=== PATIENT | male | born 1955 | race Caucasian/White ===

== ENCOUNTER 2019-09-01 09:38 | Inpatient (IN) ==
[2019-09-01] MEDS ORDERED: ONDANSETRON 4 MG/2 ML VIAL IV STA (10:07)
[2019-09-01] MEDS ORDERED: ALUM/MAG/SIMETH/LIDO VISC 1:1 30 ML BOTTLE PO STA (10:07)
[2019-09-01] MEDS ORDERED: SODIUM CHLORIDE 0.9% 1,000 ML IV STA (10:07)
[2019-09-01] MEDS ORDERED: HYDROmorphone 2 MG/1 ML VIAL IV STA ×2 (10:07→12:11)
[2019-09-01 10:27] LABS: Basophils % 0.4 % (0.0-0.8); Eosinophils % 0.1 % (0.00-10.9); Hematocrit 42.3 VOL% (42.0-52.0); Hemoglobin 14.6 GM/DL (14.0-18.0); Immature Granulocytes % 0.5 %; Immature Granulocytes Absolute 0.05 #; Lymphocytes # 1.3 10*3/uL (1.4-4.0); Lymphocytes % 12.9 % (21.2-54.2); Mean Corpuscular HGB Conc 34.5 GM/DL (32-36); Mean Corpuscular Volume 88.3 FL (87-102); Monocytes % 7.6 % (1.7-12.7); Neutrophils % 78.5 % (38.7-73.9); Platelet Count 182 T/CUMM (130-400); Red Blood Count 4.79 MC/CUMM (3.8-5.5); Red Cell Distribution Width 16.9 % (9.3-17.3); White Blood Count 10.3 T/CUMM (4-12)
[2019-09-01 10:49] LABS: Alanine Aminotransferase 14 U/L (16-61); Albumin 3.5 G/DL (3.4-5.0); Alkaline Phosphatase 118 U/L (45-117); Aspartate Amino Transferase 20 U/L (0-37); Blood Urea Nitrogen 14 MG/DL (7-18); Calcium 8.1 MG/DL (8.5-10.1); Estimated Glom Filtration Rate 89 ML/MIN; Glucose 99 MG/DL (74-106); Osmolality,Calculated 273.8 MOS/KG (273-304); Total Protein 6.9 G/DL (6.4-8.3)
[2019-09-01] MEDS ORDERED: ONDANSETRON 4 MG/2 ML VIAL IV PRN (11:33)
[2019-09-01 12:23] LABS: Apearance,Urine CLEAR (Clear); Bilirubin,Urine Negative (Negative); Blood, Urine Negative (Negative); Glucose,Urine (UA) Negative (Negative); Ketones,Urine Negative (Negative); Nitrite,Urine Negative (Negative); Protein,Urine Negative; Urine Color Straw (Yellow); Urine Specific Gravity 1.029 (1.001-1.035); Urine Urobilinogen < 2.0 EU/DL (0.2-1.0)
[2019-09-01] MEDS: SODIUM CHLORIDE 0.9% 1,000 ML IV SCH ×2 (12:37→21:10)
[2019-09-01] MEDS: ENOXAPARIN 40 MG/0.4 ML SYRINGE SUBCUT SCH (15:23)
[2019-09-01] MEDS: HYDROmorphone 2 MG/1 ML VIAL IV PRN ×2 (15:25→20:04)
[2019-09-01] MEDS: DOCUSATE SODIUM 100 MG CAPSULE PO SCH (21:18)
[2019-09-01] MEDS: ACETAMINOPHEN 325 MG TABLET PO PRN (21:22)
[2019-09-01] MEDS: CLORAZEPATE 3.75 MG TABLET PO PRN (21:22)
[2019-09-02] MEDS: HYDROmorphone 2 MG/1 ML VIAL IV PRN ×6 (00:07→21:08)
[2019-09-02] MEDS: ZALEPLON 5 MG CAPSULE PO PRN ×2 (00:07→21:19)
[2019-09-02] MEDS: ACETAMINOPHEN 325 MG TABLET PO PRN ×3 (04:13→18:26)
[2019-09-02] MEDS: SODIUM CHLORIDE 0.9% 1,000 ML IV SCH ×3 (05:05→23:03)
[2019-09-02 07:19] LABS: Albumin 2.7 G/DL (3.4-5.0); Bilirubin,Total 1.5 MG/DL (0.2-1.0); Calcium 7.8 MG/DL (8.5-10.1); Osmolality,Calculated 269.1 MOS/KG (273-304); Total Protein 5.8 G/DL (6.4-8.3)
[2019-09-02] MEDS: DOCUSATE SODIUM 100 MG CAPSULE PO SCH ×2 (09:00→21:08)
[2019-09-02] MEDS: PANTOPRAZOLE 40 MG TABLET PO SCH (09:00)
[2019-09-02] MEDS: THIAMINE 200 MG/2 ML VIAL IV SCH (11:15)
[2019-09-02] MEDS: MULTIVITAMIN INJ 10 ML in SODIUM CHLORIDE 0.9% 1,000 ML IV SCH (12:14)
[2019-09-02] MEDS: ENOXAPARIN 40 MG/0.4 ML SYRINGE SUBCUT SCH (14:40)
[2019-09-02] MEDS: CLORAZEPATE 3.75 MG TABLET PO PRN (18:26)
[2019-09-03] MEDS: ACETAMINOPHEN 325 MG TABLET PO PRN ×2 (00:26→16:25)
[2019-09-03] MEDS: HYDROmorphone 2 MG/1 ML VIAL IV PRN ×5 (01:05→21:06)
[2019-09-03] MEDS: SODIUM CHLORIDE 0.9% 1,000 ML IV SCH ×4 (08:18→22:13)
[2019-09-03] MEDS: LISINOPRIL/HCTZ 20-25 MG TABLET PO SCH (09:24)
[2019-09-03] MEDS: PANTOPRAZOLE 40 MG TABLET PO SCH (09:24)
[2019-09-03] MEDS: DOCUSATE SODIUM 100 MG CAPSULE PO SCH ×2 (09:24→21:05)
[2019-09-03] MEDS: OMEPRAZOLE ODT 20 MG TABLET PO SCH (09:24)
[2019-09-03] MEDS: THIAMINE 200 MG/2 ML VIAL IV SCH (09:24)
[2019-09-03] MEDS: MULTIVITAMIN INJ 10 ML in SODIUM CHLORIDE 0.9% 1,000 ML IV SCH (11:48)
[2019-09-03] MEDS: ENOXAPARIN 40 MG/0.4 ML SYRINGE SUBCUT SCH (13:35)
[2019-09-03] MEDS: CLORAZEPATE 3.75 MG TABLET PO PRN (16:25)
[2019-09-04] MEDS: ACETAMINOPHEN 325 MG TABLET PO PRN ×2 (00:05→09:46)
[2019-09-04] MEDS: HYDROmorphone 2 MG/1 ML VIAL IV PRN ×3 (00:14→08:03)
[2019-09-04] MEDS: SODIUM CHLORIDE 0.9% 1,000 ML IV SCH (06:10)
[2019-09-04] MEDS ORDERED: [UNRECOGNIZED DRUG - OTHER] IV SCH (06:30)
[2019-09-04] MEDS ORDERED: MULTIVITAMIN IV SCH (06:30)
[2019-09-04] MEDS ORDERED: SODIUM CHLORIDE IV SCH (06:30)
[2019-09-04 08:10] VITALS: BP 124/89
[2019-09-04 08:15] LABS: Basophils % 0.5 % (0.0-0.8); Eosinophils # 0.2 10*3/uL (0.0-0.87); Hematocrit 37.3 VOL% (42.0-52.0); Hemoglobin 12.7 GM/DL (14.0-18.0); Immature Granulocytes % 0.7 %; Immature Granulocytes Absolute 0.06 #; Lymphocytes # 1.1 10*3/uL (1.4-4.0); Lymphocytes % 13.7 % (21.2-54.2); Mean Corpuscular Volume 91.4 FL (87-102); Mean Platelet Volume 9.6 FL (9.6-12.0); Monocytes % 9.4 % (1.7-12.7); Neutrophils % 73.7 % (38.7-73.9); Platelet Count 152 T/CUMM (130-400); Red Blood Count 4.08 MC/CUMM (3.8-5.5); Red Cell Distribution Width 17.2 % (9.3-17.3); White Blood Count 8.1 T/CUMM (4-12)
[2019-09-04] MEDS: LISINOPRIL/HCTZ 20-25 MG TABLET PO SCH (09:46)
[2019-09-04] MEDS: PANTOPRAZOLE 40 MG TABLET PO SCH (09:47)
[2019-09-04] MEDS: THIAMINE 200 MG/2 ML VIAL IV SCH (09:47)
[2019-09-04] MEDS: DOCUSATE SODIUM 100 MG CAPSULE PO SCH (09:47)
[2019-09-04] MEDS: OMEPRAZOLE ODT 20 MG TABLET PO SCH (09:47)
[2019-09-04 10:02] LABS: Sedimentation Rate-Westergren 59 MM/HR (0-20)
== END 2019-09-04 11:33 | disposition home or self-care (01) | DRG 439 ==
LOC: N.ED 09:38 → SUPCPDRO 11:46 → N.EDINP 11:46 → N.TELEN 14:24
PROVIDERS: ADMIT Family Medicine; ATTEND Family Medicine

== ENCOUNTER 2019-11-26 03:38 | Inpatient (IN) ==
[2019-11-26 04:09] LABS: Basophils # 0.1 10*3/uL (0.0-0.2); Basophils % 0.3 % (0.0-0.8); Eosinophils % 0.1 % (0.00-10.9); Immature Granulocytes % 0.8 %; Immature Granulocytes Absolute 0.12 #; Lymphocytes # 1.7 10*3/uL (1.4-4.0); Lymphocytes % 10.6 % (21.2-54.2); Mean Corpuscular HGB Conc 37.8 GM/DL (32-36); Mean Platelet Volume 10.8 FL (9.6-12.0); Monocytes % 7.9 % (1.7-12.7); Neutrophils % 80.3 % (38.7-73.9); Platelet Count 144 T/CUMM (130-400); Red Blood Count 5.07 MC/CUMM (3.8-5.5); Red Cell Distribution Width 12.1 % (9.3-17.3); White Blood Count 15.9 T/CUMM (4-12)
[2019-11-26] MEDS ORDERED: ONDANSETRON 4 MG/2 ML VIAL IV ONE (04:15)
[2019-11-26] MEDS ORDERED: MORPHINE 4 MG/1 ML VIAL IV STA ×2 (04:15→05:20)
[2019-11-26 04:31] LABS: Hematocrit 44.4 VOL% (42.0-52.0)
[2019-11-26 04:32] LABS: Hemoglobin 16.5 GM/DL (14.0-18.0)
[2019-11-26 04:52] LABS: Albumin 4.4 G/DL (3.4-5.0); Bilirubin,Total 1.7 MG/DL (0.2-1.0); Calcium 8.8 MG/DL (8.5-10.1); Osmolality,Calculated 268.5 MOS/KG (273-304); Total Protein 7.6 G/DL (6.4-8.3)
[2019-11-26] MEDS ORDERED: PANTOPRAZOLE 40 MG VIAL IV STA (05:20)
[2019-11-26] MEDS ORDERED: THIAMINE INJ 100 MG, FOLIC ACID INJ 1 MG, MAGNESIUM SULF INJ 2 GM, MULTIVITAMIN INJ 10 ... IV ONE (05:20)
[2019-11-26] MEDS: MORPHINE 4 MG/1 ML VIAL IV PRN ×4 (09:10→21:31)
[2019-11-26] MEDS: POTASSIUM CHLORIDE 20 MEQ TABLET PO PRN ×4 (09:42→17:42)
[2019-11-26] MEDS: DOCUSATE SODIUM 100 MG CAPSULE PO SCH ×2 (09:42→21:34)
[2019-11-26] MEDS: PANTOPRAZOLE 40 MG VIAL IV SCH (09:42)
[2019-11-26] MEDS: ACETAMINOPHEN 325 MG TABLET PO PRN ×2 (11:50→17:42)
[2019-11-26] MEDS: ONDANSETRON 4 MG/2 ML VIAL IV PRN (18:17)
[2019-11-26] MEDS: TAMSULOSIN 0.4 MG CAPSULE PO SCH (21:32)
[2019-11-27] MEDS: MORPHINE 4 MG/1 ML VIAL IV PRN ×6 (01:14→23:23)
[2019-11-27] MEDS: ACETAMINOPHEN 325 MG TABLET PO PRN ×2 (01:18→18:06)
[2019-11-27] MEDS: ONDANSETRON 4 MG/2 ML VIAL IV PRN ×2 (01:26→15:00)
[2019-11-27] MEDS ORDERED: SODIUM CHLORIDE 0.9% 1,000 ML IV STA (07:54)
[2019-11-27 08:24] LABS: Albumin 3.6 G/DL (3.4-5.0); Bilirubin,Direct 0.27 MG/DL (0.0-0.20); Bilirubin,Indirect 0.9 MG/DL (0.0-1.0); Bilirubin,Total 1.2 MG/DL (0.2-1.0); Total Protein 7.2 G/DL (6.4-8.3)
[2019-11-27 08:30] LABS: Basophils % 0.3 % (0.0-0.8); Eosinophils # 0.3 10*3/uL (0.0-0.87); Eosinophils % 2.6 % (0.00-10.9); Hematocrit 40.7 VOL% (42.0-52.0); Immature Granulocytes % 0.4 %; Immature Granulocytes Absolute 0.05 #; Lymphocytes # 1.1 10*3/uL (1.4-4.0); Lymphocytes % 9.9 % (21.2-54.2); Mean Corpuscular HGB Conc 34.9 GM/DL (32-36); Mean Corpuscular Volume 91.5 FL (87-102); Mean Platelet Volume 11.3 FL (9.6-12.0); Monocytes % 9.2 % (1.7-12.7); Neutrophils % 77.6 % (38.7-73.9); Red Blood Count 4.45 MC/CUMM (3.8-5.5); Red Cell Distribution Width 12.8 % (9.3-17.3); White Blood Count 11.5 T/CUMM (4-12)
[2019-11-27 08:33] LABS: Hemoglobin 14.2 GM/DL (14.0-18.0); Platelet Count 111 T/CUMM (130-400)
[2019-11-27] MEDS: DOCUSATE SODIUM 100 MG CAPSULE PO SCH ×2 (09:09→20:05)
[2019-11-27] MEDS: PANTOPRAZOLE 40 MG VIAL IV SCH (09:09)
[2019-11-27] MEDS: ENOXAPARIN 40 MG/0.4 ML SYRINGE SUBCUT SCH (10:22)
[2019-11-27] MEDS: TAMSULOSIN 0.4 MG CAPSULE PO SCH (20:05)
[2019-11-27] MEDS: ZALEPLON 5 MG CAPSULE PO PRN (23:23)
[2019-11-28] MEDS: ACETAMINOPHEN 325 MG TABLET PO PRN ×3 (01:48→22:33)
[2019-11-28] MEDS: ONDANSETRON 4 MG/2 ML VIAL IV PRN ×3 (01:49→22:34)
[2019-11-28] MEDS: MORPHINE 4 MG/1 ML VIAL IV PRN ×5 (04:59→23:30)
[2019-11-28] MEDS: DOCUSATE SODIUM 100 MG CAPSULE PO SCH ×2 (09:07→20:51)
[2019-11-28] MEDS: ENOXAPARIN 40 MG/0.4 ML SYRINGE SUBCUT SCH (09:07)
[2019-11-28] MEDS: PANTOPRAZOLE 40 MG VIAL IV SCH (09:08)
[2019-11-28] MEDS: TAMSULOSIN 0.4 MG CAPSULE PO SCH (20:51)
[2019-11-28] MEDS: ZALEPLON 5 MG CAPSULE PO PRN (23:30)
[2019-11-29] MEDS: MORPHINE 4 MG/1 ML VIAL IV PRN (04:16)
[2019-11-29 04:17] LABS: Albumin 2.8 G/DL (3.4-5.0); Bilirubin,Direct 0.16 MG/DL (0.0-0.20); Bilirubin,Indirect 0.3 MG/DL (0.0-1.0); Bilirubin,Total 0.5 MG/DL (0.2-1.0); Total Protein 6.5 G/DL (6.4-8.3)
[2019-11-29] MEDS ORDERED: BISACODYL 10 MG SUPP RECTAL PRN (07:16)
[2019-11-29] MEDS: ENOXAPARIN 40 MG/0.4 ML SYRINGE SUBCUT SCH (08:02)
[2019-11-29] MEDS: PANTOPRAZOLE 40 MG VIAL IV SCH (08:02)
[2019-11-29] MEDS: DOCUSATE SODIUM 100 MG CAPSULE PO SCH ×2 (08:03→22:35)
[2019-11-29] MEDS: HYDROmorphone 2 MG/1 ML VIAL IV PRN ×4 (08:03→22:36)
[2019-11-29] MEDS ORDERED: POLYETHYLENE GLYCOL POWDER 17 GM PACK PO PRN (10:29)
[2019-11-29] MEDS ORDERED: SIMETHICONE CHEW 125 MG TABLET PO PRN (10:30)
[2019-11-29] MEDS: ONDANSETRON 4 MG/2 ML VIAL IV PRN (12:20)
[2019-11-29] MEDS: ACETAMINOPHEN 325 MG TABLET PO PRN ×2 (15:38→22:35)
[2019-11-29] MEDS: ZALEPLON 5 MG CAPSULE PO PRN (22:35)
[2019-11-29] MEDS: TAMSULOSIN 0.4 MG CAPSULE PO SCH (22:36)
[2019-11-30] MEDS: HYDROmorphone 2 MG/1 ML VIAL IV PRN ×2 (04:08→08:26)
[2019-11-30] MEDS: DOCUSATE SODIUM 100 MG CAPSULE PO SCH (08:25)
[2019-11-30] MEDS: PANTOPRAZOLE 40 MG VIAL IV SCH (08:26)
[2019-11-30] MEDS: ENOXAPARIN 40 MG/0.4 ML SYRINGE SUBCUT SCH (08:27)
[2019-11-30 08:32] VITALS: BP 141/82
== END 2019-11-30 09:44 | disposition home or self-care (01) | DRG 440 ==
LOC: N.ED 03:38 → N.EDINP 03:38 → N.5E 08:15
PROVIDERS: ADMIT Family Medicine; ATTEND Family Medicine

== ENCOUNTER 2021-01-25 21:35 | Inpatient (IN) ==
[2021-01-25] MEDS ORDERED: HYDROmorphone 2 MG/1 ML VIAL IV STA (22:27)
[2021-01-25] MEDS ORDERED: ONDANSETRON 4 MG/2 ML VIAL IV STA (22:27)
[2021-01-25] MEDS ORDERED: SODIUM CHLORIDE 0.9% 1,000 ML IV STA (22:28)
[2021-01-25 23:04] LABS: Basophils % 0.3 % (0.0-0.8); Eosinophils % 0.2 % (0.00-10.9); Hematocrit 41.3 VOL% (42.0-52.0); Hemoglobin 15.1 GM/DL (14.0-18.0); Immature Granulocytes % 0.7 %; Lymphocytes # 0.7 10*3/uL (1.4-4.0); Lymphocytes % 4.5 % (21.2-54.2); Mean Corpuscular HGB Conc 36.6 GM/DL (32-36); Mean Corpuscular Volume 88.6 FL (87-102); Mean Platelet Volume 10.6 FL (9.6-12.0); Monocytes % 5.8 % (1.7-12.7); Neutrophils % 88.5 % (38.7-73.9); Platelet Count 156 T/CUMM (130-400); Red Blood Count 4.66 MC/CUMM (3.8-5.5); Red Cell Distribution Width 14.4 % (9.3-17.3)
[2021-01-25 23:05] LABS: White Blood Count 14.8 T/CUMM (4-12)
[2021-01-25 23:23] LABS: Albumin 4.1 G/DL (3.4-5.0); Bilirubin,Total 1.3 MG/DL (0.20-1.00); Calcium 8.9 MG/DL (8.5-10.1); Osmolality,Calculated 261.8 MOS/KG (273-304); Potassium 3.4 MMOL/L (3.5-5.1); Total Protein 7.5 G/DL (6.4-8.2)
[2021-01-25 23:25] LABS: Band Neutrophils 1 % (0-10); Lymphocytes 6 % (20-55); Segmented Neutrophils 89 % (50-85); Total Cells Counted 100
[2021-01-25 23:26] LABS: Platelet Estimate Normal
[2021-01-26] MEDS ORDERED: ACETAMINOPHEN 325 MG TABLET PO PRN (01:40)
[2021-01-26] MEDS: HYDROmorphone 2 MG/1 ML VIAL IV PRN ×5 (02:12→22:32)
[2021-01-26] MEDS: SODIUM CHLORIDE 0.9% 1,000 ML IV SCH ×2 (03:20→11:57)
[2021-01-26 04:56] LABS: Calcium 8.6 MG/DL (8.5-10.1); Osmolality,Calculated 260.8 MOS/KG (273-304); Potassium 3.4 MMOL/L (3.5-5.1)
[2021-01-26] MEDS ORDERED: INFLUENZA VIRUS VACCINE 0.5 ML SYRINGE IM ONE (09:00)
[2021-01-26] MEDS: PANTOPRAZOLE 40 MG TABLET PO SCH (11:34)
[2021-01-26] MEDS: ONDANSETRON 4 MG/2 ML VIAL IV PRN ×2 (11:34→18:10)
[2021-01-26] MEDS ORDERED: traMADol 50 MG TABLET PO PRN (11:47)
[2021-01-26] MEDS ORDERED: PROMETHAZINE 25 MG/1 ML VIAL IM PRN (11:48)
[2021-01-26] MEDS ORDERED: hydrALAZINE 20 MG/1 ML VIAL IV PRN (11:49)
[2021-01-26] MEDS: DOCUSATE SODIUM 100 MG CAPSULE PO SCH ×2 (11:55→20:45)
[2021-01-26] MEDS: LISINOPRIL/HCTZ 20-12.5 MG TABLET PO SCH (14:19)
[2021-01-26] MEDS: CIPROFLOXACIN INJ 400 MG/200 ML PREMIX IV SCH (14:21)
[2021-01-26] MEDS: metroNIDAZOLE INJ 500 MG/100 ML PREMIX IV SCH ×2 (16:54→22:27)
[2021-01-27] MEDS: CIPROFLOXACIN INJ 400 MG/200 ML PREMIX IV SCH (01:38)
[2021-01-27] MEDS: metroNIDAZOLE INJ 500 MG/100 ML PREMIX IV SCH (05:52)
[2021-01-27 06:15] LABS: Basophils % 0.3 % (0.0-0.8); Eosinophils # 0.2 10*3/uL (0.0-0.87); Eosinophils % 2.6 % (0.00-10.9); Hematocrit 33.8 VOL% (42.0-52.0); Immature Granulocytes % 0.8 %; Immature Granulocytes Absolute 0.07 #; Lymphocytes # 1.2 10*3/uL (1.4-4.0); Lymphocytes % 13.5 % (21.2-54.2); Mean Corpuscular HGB Conc 35.5 GM/DL (32-36); Mean Corpuscular Volume 90.1 FL (87-102); Mean Platelet Volume 10.5 FL (9.6-12.0); Monocytes % 10.8 % (1.7-12.7); Platelet Count 140 T/CUMM (130-400); Red Blood Count 3.75 MC/CUMM (3.8-5.5); Red Cell Distribution Width 14.5 % (9.3-17.3)
[2021-01-27 06:30] LABS: White Blood Count 8.9 T/CUMM (4-12)
[2021-01-27 06:42] LABS: Albumin 3.3 G/DL (3.4-5.0); Bilirubin,Direct 0.25 MG/DL (0.0-0.20); Bilirubin,Indirect 0.9 MG/DL (0.0-1.0); Bilirubin,Total 1.1 MG/DL (0.20-1.00); Calcium 8.5 MG/DL (8.5-10.1); Osmolality,Calculated 261.5 MOS/KG (273-304); Potassium 2.9 MMOL/L (3.5-5.1); Total Protein 6.5 G/DL (6.4-8.2)
[2021-01-27] MEDS: SODIUM CHLORIDE 0.9% 1,000 ML IV SCH (07:37)
[2021-01-27] MEDS ORDERED: POTASSIUM CHLORIDE 20 MEQ TABLET PO PRN (07:47)
[2021-01-27] MEDS ORDERED: MAGNESIUM SULF RIDER 4 GM/100 ML PREMIX IV PRN (07:48)
[2021-01-27] MEDS ORDERED: MAGNESIUM SULF RIDER 2 GM/50 ML PREMIX IV PRN (07:48)
[2021-01-27 08:03] VITALS: BP 147/76
[2021-01-27] MEDS ORDERED: TAMSULOSIN 0.4 MG CAPSULE PO SCH (09:00)
[2021-01-27] MEDS: DOCUSATE SODIUM 100 MG CAPSULE PO SCH (09:08)
[2021-01-27] MEDS: LISINOPRIL/HCTZ 20-12.5 MG TABLET PO SCH (09:08)
[2021-01-27] MEDS: PANTOPRAZOLE 40 MG TABLET PO SCH (09:08)
== END 2021-01-27 09:00 | disposition home or self-care (01) | DRG 440 ==
LOC: N.ED 21:35 → N.EDINP 01-26 01:40 → N.3E 01-26 02:32
PROVIDERS: ADMIT Family Medicine; ATTEND Family Medicine